=== PATIENT | male | born 1945 | race Two or more races ===

== ENCOUNTER 2018-11-27 08:52 | Outpatient (CLI) | payer OTHER | END 2018-11-27 08:59 | disposition home or self-care (01) | LOC: MRI 08:52 | DX: C67.8 Malignant neoplasm of overlapping sites of bladder (principal) | CPT/HCPCS: 72196; A9575 ==

== ENCOUNTER → 2018-11-29 | Outpatient (CLI) | payer OTHER | END | disposition home or self-care (01) | LOC: NUCLEAR 07:00 | DX: C67.8 Malignant neoplasm of overlapping sites of bladder (principal) | CPT/HCPCS: 78815; A9552 ==